=== PATIENT | female | born 1935 | race Caucasian/White ===

== ENCOUNTER 2021-03-07 15:41 | Emergency (ER) | payer MEDICARE ==
[2021-03-07 15:55] VITALS: RESP 18
--- NOTE | 2021-03-07 17:34 | CT ---
EXAMINATION TYPE: CT brain abundio plata DATE OF EXAM: 03/07/2021 COMPARISON: None HISTORY: Fall today with Left frontal injury. CT DLP: 1342.4 mGycm Automated exposure control for dose reduction was used. There is cerebral cortical atrophy. There is no mass effect nor midline shift. There is no sign of in tracranial hemorrhage. Calvarium is intact. There is normal aeration of the mastoid sinuses. The cervical vertebra have normal alignment. There is degenerative disc space narrowing throughout th e cervical spine and more severe at C4-5 and C5-6. Facet joints are intact. Skull base is intact. 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 No fracture. Cerebral atrophy. No acute intracranial abnormality.
--- NOTE | 2021-03-07 17:40 | ED ---
General Adult HPI - General Chief complaint: Fall Stated complaint: Fall/head/hand injury Time Seen by Provider: 03/07/21 16:06 Source: patient, RN notes reviewed Mode of arrival: ambulatory Limitations: no limitations - History of Present Illness Initial comments: 85-year-old female with a past medical history of hypertension presents to the emergency room for a chief complaint of fall. Patient had a trip and fall earlier when her foot caught under the threshold of her door. Patient fell through the mud room and hit her head on the door opposite the entryway. Patient did not lose consciousness. She does not take blood thinners. She denies neck pain. Denies back or abdominal pain. Patient is complaining of left third finger pain. Patient denies any other injuries.Patient has no other complaints at this time including shortness of breath, chest pain, abdominal pain, nausea or vomiting, headache, or visual changes. - Related Data Allergies Allergy/AdvReac Type Severity Reaction Status Date / Time No Known Allergies Allergy Verified 03/07/21 15:55 Review of Systems ROS Statement: Those systems with pertinent positive or pertinent negative responses have been documented in the HPI. ROS Other: All systems not noted in ROS Statement are negative. Past Medical History Past Medical History: Hypertension, Thyroid Disorder History of Any Multi-Drug Resistant Organisms: None Reported Past Surgical History: Appendectomy Additional Past Surgical History / Comment(s): cysts from wrists removed, Past Psychological History: No Psychological Hx Reported Smoking Status: Never smoker Past Alcohol Use History: None Reported Past Drug Use History: None Reported General Exam Limitations: no limitations General appearance: alert, in no apparent distress Head exam: Present: atraumatic, normocephalic, normal inspection Eye exam: Present: normal appearance, PERRL, EOMI. Absent: scleral icterus, conjunctival injection, periorbital swelling ENT exam: Present: normal exam, mucous membranes moist Neck exam: Present: normal inspection. Absent: tenderness, meningismus, lymphadenopathy Respiratory exam: Present: normal lung sounds bilaterally. Absent: respiratory distress, wheezes, rales, rhonchi, stridor Cardiovascular Exam: Present: regular rate, normal rhythm, normal heart sounds. Absent: systolic murmur, diastolic murmur, rubs, gallop, clicks GI/Abdominal exam: Present: soft, normal bowel sounds. Absent: distended, tenderness, guarding, rebound, rigid Extremities exam: Present: tenderness (Tenderness to the proximal phalanx of the right third digit as well as the left third metacarpal head.), normal capillary refill (Lambert refill less than 2 seconds in the right upper extremity. Radial pulse 2+.), joint swelling (Mild edema and ecchymosis to the proximal phalanx and metacarpal head of the right third digit.), other (sensation intact in RUE). Absent: full ROM (Patient unable to move the right third digit secondary to pa in.), pedal edema, calf tenderness Neurological exam: Present: alert Course Vital Signs 03/07/21 03/07/21 15:51 18:02 Temperature 98.0 F 98.7 F Pulse Rate 86 73 Respiratory 18 18 Rate Blood Pressure 203/103 216/93 O2 Sat by Pulse 98 98 Oximetry Procedures - Orthopedic Splinting/Casting Injury #1 Side: right Upper Extremity Injury Location: short arm Upper Extremity Immobilizer: volar splint Additional Comments: NV intact Medical Decision Making - Medical Decision Making Patient presents hypertensive. Patient states she has a history of high blood pressure but has not had an issue with this in the past year so discontinued her blood pressure medication. Patient states she checks her blood pressure every 4 days. Yesterday it was 120/93. We do not comfortable starting patient on blood pressure medication given her age and usually normal blood pressure. It is likely she is hypertensive today secondary to injury as well as white coat syndrome. She will check this twice per sday and follow up with her doctor. Denies symptoms at this time including GAUTAM. HPI and physical exam as documented. CT brain is negative, CT cervical spine negative. X-ray of the right hand is negative however patient does have extensive bruising noted to the right third middle finger, therefore splint will be placed. She will follow up with orthopedics. She'll return here for any worsening symptoms. Patient did not want any pain medication today. Disposition Clinical Impression: Hand contusion, Head injury, Hypertension Disposition: HOME SELF-CARE Condition: Good Instructions (If sedation given, give patient instructions): Fall Prevention for Older Adults (ED) Additional Instructions: Please follow up with orthopedics. Take Tylenol for pain. Rest ice and elevate the right hand. Return to the emergency room for any worsening symptoms. Is patient prescribed a controlled substance at d/c from ED?: No Referrals: Oziel Hammond MD [Primary Care Provider] - 1-2 days Javy Blanco MD [STAFF PHYSICIAN] - 1-2 days Time of Disposition: 18:26
--- NOTE | 2021-03-07 17:43 | XR ---
EXAMINATION TYPE: XR hand complete RT DATE OF EXAM: 03/07/2021 COMPARISON: None HISTORY: Pain and swelling TECHNIQUE: 4 views FINDINGS: Metacarpals appear intact. There is narrowing and spurring at the first carpometacarpal milton nt. There is narrowing and spurring at the IP joints of the digits. There is spurring at the first MP joint. There is no subluxation. There are no erosions. I see no evidence of a fracture. IMPRESSION: Arthritic changes consistent with osteoarthritis. No fracture seen. No focal bone destruc tion.
[2021-03-07 18:03] VITALS: BP 216/93; PULSE 73; TEMP 98.7
== END 2021-03-07 18:44 | disposition home or self-care (01) ==
LOC: EC 15:41
DX: S09.90XA Unspecified injury of head, initial encounter (principal); S60.031A Contusion of right middle finger without damage to nail, initial encounter; I10 Essential (primary) hypertension; W01.190A Fall on same level from slipping, tripping and stumbling with subsequent striking against furniture, initial encounter
CPT/HCPCS: 29125; 70450; 72125; 99284